=== PATIENT | female | born 1955 | race Caucasian/White ===

== ENCOUNTER 2022-10-20 07:05 | Day surgery (SDC) | payer MEDICARE, SELFPAY ==
--- NOTE | 2022-10-20 | PATH_ITS ---
[facility] Accession Number: [id number] No. of containers..02 Tissue . 01 Material submitted: . PART A: duodenum - DUODENUM PART B: esophagus, E-G Junction - GE JUNCTION . 01 Diagnosis: A. Duodenum, Biopsy: Duodenal mucosa with no diagnostic abnormality. Negative for active inflammation, features of sprue, dysplasia, or malignancy. . B. Gastroesophageal Junction, Biopsy: Squamous mucosa with mild chronic inflammation and minimal neutrophilic activity consistent with reflux-related changes. Intraepithelial eosinophils are not increased. Negative for dysplasia and malignancy. MRV 10/26/2022 1433 Local . 01 Comment: Part B: No columnar epithelium is identified in the sections examined. . 01 Electronically signed: . Hilda Fritz MD, Pathologist NPI- [id number] . 01 Gross description: . Part A: DUODENUM: Received in formalin are 2 fragment(s) of alan, soft tissue measuring 0.1 x 0.1 x 0.1 cm to 0.2 x 0.1 x 0.1 cm submitted entirely in 1 cassette(s) Part B: GE JUNCTION: Received in formalin are 2 fragment(s) of alan, soft tissue measuring 0.2 x 0.2 x 0.1 cm to 0.4 x 0.4 x 0.2 cm submitted entirely in 1 cassette(s) /DAKOTA 10/21/2022 2312 Local . 01 Pathologist provided ICD-10: R11.10, R19.4 . 01 CPT . 842495, 390283 Specimen Comment: A courtesy copy of this report has been sent to [phone] Performed at: 01 [facility] [address] [place] [address], [place], [place] [id number] MD Arben Fiore MD Phone: [phone]
[2022-10-20 07:33] VITALS: BP 130/75; PULSE 82; RESP 16; TEMP 36.2; O2SAT 95; BMI 25.1
[2022-10-20] MEDS: LACTATED RINGERS 1,000 ML 200 ML IV (07:47)
--- NOTE | 2022-10-20 08:13 | PM.HP.1 ---
History of Present Illness History of Present Illness Date Patient Seen: 10/20/22 Time Patient Seen: 08:13 Chief complaint: SDC Narrative: 67-year-old woman here for screening colonoscopy EGD. She is never had a previous colonoscopy. No family history of intestinal malignancy. She has a long history of reflux and recently began developing frequent emesis especially during bowel movements. No abdominal pain blood per rectum or unintentional weight loss. [facility] Medical History (Updated 10/20/22 @ 08:14 by Thompson Beth MD) COPD (chronic obstructive pulmonary disease) GERD (gastroesophageal reflux disease) Tachycardia TIA (transient ischemic attack) Social History household members: significant other Smoking Status: Former smoker alcohol intake: current Meds Home Medications and Allergies Home Medications Medication Instructions Recorded Confirmed Type ACETAMINOPHEN 325 mg PO PRN ##0 05/20/11 10/20/22 History gabapentin 300 mg capsule 300 mg PO BID ##0 05/20/11 10/20/22 History (Neurontin) aspirin 81 mg capsule 81 mg PO DAILY 10/20/22 10/20/22 History cholecalciferol (vitamin D3) 100 1,000 unit PO DAILY 10/20/22 10/20/22 History mcg (4,000 unit) capsule cyclobenzaprine 10 mg tablet 10 mg PO BEDTIME PRN muscle spasms 10/20/22 10/20/22 History hydroxyzine HCl 50 mg tablet 50 mg PO BEDTIME 10/20/22 10/20/22 History mecobalamin (vitamin B12) 1,000 1,000 mcg PO DAILY 10/20/22 10/20/22 History mcg chewable tablet (B12 Active) metoprolol succinate 25 mg capsule 25 mg PO DAILY 10/20/22 10/20/22 History sprinkle, ext. release 24 hr omeprazole 20 mg capsule,delayed 20 mg PO DAILY 10/20/22 10/20/22 History release pravastatin 80 mg tablet 80 mg PO DAILY 10/20/22 10/20/22 History Allergies Allergy/AdvReac Type Severity Reaction Status Date / Time From PERCOCET Allergy Mild DOES NOT Uncoded 10/20/22 07:22 WORK [employer] HER TAPE Allergy Unknown SENSITIVE Uncoded 10/20/22 07:22 PAPER TAPE OK Exam Vital Signs (past 8 hours): - 10/20/22 07:33 Temperature 97.1 F L Pulse Rate 82 Respiratory Rate 16 Blood Pressure 130/75 Pulse Oximetry 95 Oxygen Delivery Method Room Air Oxygen Delivery Method Room Air Narrative Exam Narrative: General adult woman alert oriented no acute distress Extremities warm well perfused Assessment & Plan Assessment and plan (1) Emesis: Status: Acute Assessment & Plan narrative: 67-year-old woman long history of GERD here for screening colonoscopy and EGD secondary to frequent emesis. Technical details were discussed. Risks, benefits, alternatives explained. Risks including but not limited to myocardial infarction, aspiration, bleeding, pain, missed lesion, incomplete examination, need for further radiographic studies, intestinal perforation, and need for major abdominal surgery were discussed. All questions were answered to their satisfaction, and they are in agreement with this plan.
--- NOTE | 2022-10-20 08:17 | P.OP.COLON_ITS ---
Operative Date/Time/Diagnoses Date of procedure: 10/20/22 Time of procedure: 08:17 Pre-op diagnosis: Colorectal screening, frequent emesis, history of GERD Procedure & Clinicians Study performed: Esophagoduodenoscopy and colonoscopy Same procedure as scheduled: Yes Indications: 67-year-old woman chronic history of GERD now with frequent emesis and here for screening colonoscopy. Surgeon: Thompson Beth Procedure Notes Procedure in detail: The history and physical was performed/updated and the patient is ASA class is 2. The procedure was discussed in detail with the patient. Potential risks complications including infection, bleeding, missed diagnosis, perforation, need for surgery, and were explained. Their questions were answered and informed consent was obtained. Patient placed in left lateral decubitus position. Time out was performed. Proc edural sedation was administered by Anesthesia. A bite block was placed. the scope was inserted into the mouth and advanced through the esophagus and into the stomach. The stomach was grossly normal without gastritis or ulceration. The pylorus was intubated the duodenum was examined and there was mild duodenitis biopsy of the duodenum was performed. The scope was retroflexed within the stomach and there was a small hiatal hernia. The scope was withdrawn into the esophagus the Z line was seen at 40 cm from the incisions. There was no Harris's esophagitis, esophageal masses or strictures. Biopsy of the GE junction was performed with forceps. Stomach was desufflated and scope removed. Examination began with a thorough inspection of the perianal area there was no evidence of fissures, fistulae, external hemorrhoids or cutaneous malignancy. The colonoscopy scope was then placed into the anal canal and was advanced to the cecum, which was identified by the ileocecal valve, the appendiceal orifice and the confluence of the taenia. The scope was then slowly withdrawn examining colon thoroughly in all directions, irrigating it of any residual stool. The colon was tortuous. There was significant diverticulosis within the sigmoid colon. No masses or polyps. The patient tolerated the procedure well. They will be discharged once criteria are met. The prep was of good/excellent quality. The withdrawl time was 6 minutes. Specimen(s): other (Duodenum, GE junction) Complications: none Impression: Normal colonoscopy Post-procedure Recommendations: Colonoscopy in 10 years and High fiber diet Disposition: same day surgery
[2022-10-20 08:59] VITALS: BP 129/79; PULSE 61; RESP 20; TEMP 35.8; O2SAT 98
[2022-10-20 09:04] VITALS: BP 133/74; PULSE 65; RESP 18; O2SAT 93
[2022-10-20 09:10] VITALS: BP 141/77; PULSE 66; RESP 18; TEMP 36.4; O2SAT 99
[2022-10-20 09:15] VITALS: BP 142/89; PULSE 64; RESP 16; TEMP 36.4; O2SAT 99
== END 2022-10-20 09:30 | disposition home or self-care (01) ==
PROVIDERS: Family Provider Internal Medicine; Referring Provider Surgery; Visit Provider Surgery
PROC: 0DJD8ZZ Inspection of Lower Intestinal Tract, Via Natural or Artificial Opening Endoscopic (ICD-10-PCS; CPT 45378; principal; 2022-10-20 08:15)
PROC: 0DJ08ZZ Inspection of Upper Intestinal Tract, Via Natural or Artificial Opening Endoscopic (ICD-10-PCS; CPT 43235; 2022-10-20 08:15)
DX: Z12.11 Encounter for screening for malignant neoplasm of colon (principal); K21.9 Gastro-esophageal reflux disease without esophagitis; R11.11 Vomiting without nausea; K57.30 Diverticulosis of large intestine without perforation or abscess without bleeding; K29.50 Unspecified chronic gastritis without bleeding
CPT/HCPCS: 43239; G0121